=== PATIENT | male | born 1980 | race Caucasian/White ===

== ENCOUNTER 2019-06-29 01:41 | Emergency (ER) | payer BC ==
[~2019-06-29] VITALS: Ht 177.8 cm; Wt 157.9 kg
[~2019-06-29 01:41] MED LIST: IBUP-1542 PO
[2019-06-29 01:56] VITALS: Ht 177.8 cm; Wt 157.9 kg
--- NOTE | 2019-06-29 02:33 | ERD ---
ER Documentation Chief Complaint Chief Complaint Chest pain HPI The patient is a 38-year-old male, presenting to the ER because of intermittent left-sided chest pain for 1 day, with breathing/movement. He has similar symptoms previously, uses relieved with antacid and burping. He denies fever, chills, neck pain, chest pain with vomiting/radiation/exertion/diaphoresis, dyspnea, abdominal pain, vomiting 20 sigmoid diarrhea. He does not smoke, drinks socially, denies illicit drug, denies any recent traveling Past medical history: Asthma Past surgical history: Appendectomy, left elbow ROS All systems reviewed and are negative except as per history of present illness. Medications Home Meds Active Scripts Ibuprofen* (Motrin*) 600 Mg Tab, 600 MG PO Q6H PRN for PAIN AND OR ELEVATED TEMP, #20 TAB Prov:PARKER SHAY MD 06/29/19 Allergies Allergies: Coded Allergies: No Known Allergy (Unverified , 06/29/19) Physical Exam Vitals Vital Signs Date Temp Pulse Resp B/P (MAP) Pulse Ox O2 O2 Flow FiO2 Time Delivery Rate 06/29/19 78 21 140/88 97 Room Air 05:15 (105) 06/29/19 79 19 146/97 98 Room Air 03:30 (113) 06/29/19 98.6 79 17 156/102 99 01:56 (120) Physical Exam Const: No acute distress. Head: Atraumatic. Eyes: Normal Conjunctiva. ENT: Normal External Ears, Nose and Mouth. Neck: Full range of motion. No meningismus. Resp: Clear to auscultation bilaterally. Cardio: Regular rate and rhythm. Mild left chest tenderness on palpation, no crepitus Abd: Soft, non distended, normal bowel sounds, non tender. Skin: No petechiae or rashes. Back: No midline or flank tenderness. Ext: No cyanosis, or edema. Neur: Awake and alert. No focal deficit Psych: Normal Mood and Affect. Result Diagram: 06/29/194 06/29/19223 Results 24 hrs Laboratory Tests Test 06/29/19 02:24 White Blood Count 9.6 10^3/ul Red Blood Count 4.90 10^6/ul Hemoglobin 15.4 g/dl Hematocrit 45.7 % Mean Corpuscular Volume 93.3 fl Mean Corpuscular Hemoglobin 31.4 pg Mean Corpuscular Hemoglobin Concent 33.7 g/dl Red Cell Distribution Width 13.2 % Platelet Count 256 10^3/UL Mean Platelet Volume 10.4 fl Immature Granulocytes % 0.400 % Neutrophils % 52.8 % Lymphocytes % 36.5 % Monocytes % 8.0 % Eosinophils % 2.0 % Basophils % 0.3 % Nucleated Red Blood Cells % 0.0 /100WBC Immature Granulocytes # 0.040 10^3/ul Neutrophils # 5.1 10^3/ul Lymphocytes # 3.5 10^3/ul Monocytes # 0.8 10^3/ul Eosinophils # 0.2 10^3/ul Basophils # 0.0 10^3/ul Nucleated Red Blood Cells # 0.0 10^3/ul D-Dimer 321.26 ng/ml D-Dimer Comment Sodium Level 138 mmol/L Potassium Level 4.5 mmol/L Chloride Level 102 mmol/L Carbon Dioxide Level 32 mmol/L Anion Gap 4 Blood Urea Nitrogen 23 mg/dl Creatinine 1.05 mg/dl Est Glomerular Filtrat Rate mL/min > 60 mL/min Glucose Level 101 mg/dl Calcium Level 9.5 mg/dl Troponin I < 0.012 ng/ml Current Medications Medications Dose Sig/Maciej Start Time Status Last (Trade) Ordered Route PRN Stop Time Admin Dose Reason Admin Ketorolac 30 mg ONCE STAT 06/29/19 DC 06/29/19 Tromethamine IV 02:49 03:00 (Toradol) 06/29/19 02:51 Procedures/[place] [address] Radiology Main Line: [phone] DIAGNOSTIC IMAGING REPORT Patient: NANY FRANKEL : 1980 Age: 38 Sex: M MR #: [id number] DOS: 06/29/19 0249 Ordering MD: PARKER SHAY MD Location: E/R Room/Bed: PROCEDURE: Single view chest. CLINICAL INDICATION: Chest pain TECHNIQUE: Single view of the chest was obtained COMPARISON: None FINDINGS: There is no airspace consolidation or focal infiltrate. No pleural effusion or pneumothorax. Cardiac silhouette and mediastinal contours are unremarkable. Pulmonary vasculature appears normal. Regional bones are grossly unremarkable. IMPRESSION: No evidence of active cardiopulmonary disease. RPTAT: [facility] Physician [place] Date Time Electronically viewed and signed by Physician Trinidad on 06/29/2019 04:52 xB/ CC: PARKER SHAY MD [id number] EKG: At 2:07 AM read by emergency physician Rate/Rhythm: Normal Sinus Rhythm 77 beats/min QRS, ST, T-waves: No ST elevation, no T inversion Impression: Normal EKG EKG: At 3:42AM read by emergency physician Rate/Rhythm: Normal Sinus Rhythm 80 beats/min QRS, ST, T-waves: No ST elevation, no T inversion Impression: Normal EKG MEDICAL MAKING DECISION: The patient is a 38-year-old male, presenting with acute chest pain for 1 day with negative troponin, most likely due to acute ch est wall pain, was treated with Toradol 30 mg IV for pain with good response, is stable for outpatient follow-up The differential diagnoses considered include but are not limited to acute coronary syndrome, acute myocardial infarction, pericarditis, pulmonary embolism, aortic dissection, pneumonia, pleural effusion, pneumothorax, GERD, chest wall pain. Departure Diagnosis: Primary Impression: Chest pain Condition: Good Comments He was discharged with Motrin The patient's blood pressure was elevated (>120/80) but appears stable without evidence of hypertension emergency or urgency. The patient was counseled about the risks of hypertension and urged to pursue outpatient monitoring and therapy within a week with their primary care physician. I discussed the findings with the patient. I advised the patient to follow-up with the primary physician in about 1-2 days, sooner if needed and return if any concern. Disclaimer: Inadvertent spelling and grammatical errors are likely due to E HR/dictation software use and do not reflect on the overall quality of patient care. Also, please note that the electronic time recorded on this note does not necessarily reflect the actual time of the patient encounter. PARKER SHAY MD Jun 29, 2019 02:33
[2019-06-29] MEDS ORDERED: KETOROLAC 30 MG INJ IV STA (02:49)
[2019-06-29 05:15] VITALS: BP 140/88; PULSE 78; RESP 21
== END 2019-06-29 05:15 | disposition home or self-care (01) ==
LOC: E/R 01:41
DX: R07.89 Other chest pain (principal)
CPT/HCPCS: 36415; 71045; 80048; 84484; 85025; 85378; 96374; 99285; J1885; 93005